=== PATIENT | male | born 1965 | race Caucasian/White ===

== ENCOUNTER 2017-02-11 15:51 | Emergency (ER) | payer OTHER ==
--- NOTE | 2017-02-11 17:00 | EDPHY ---
H & P Time Seen by Provider: 02/11/17 16:02 HPI/ROS: At 10:00 p.m. last night while at work going down stairs this patient inverted his left ankle with immediate mild pain initially. He has a low bear some weight still last night but by this morning he reports 5/10 pain at rest that becomes severe with attempts to bear weight. He notes associated mild circumferential swelling of the ankle comes in to rule out fracture. He works for [employer]. ROS: No constitutional symptoms Integumentary: No redness to the ankle or ecchymosis. Musculoskeletal: No other injuries he did not actually fall the way down-he caught himself. Neuro: No numbness or tingling 5 point ROS is otherwise negative Past Medical/Surgical History: Otherwise healthy While he has not oxycodone allergies tolerated hydrocodone in the past. Smoking Status: Never smoked Physical Exam: Physical Exam Vital signs are normal. General: No acute distress HEENT: Atraumatic. Eyes: Pupils equal and react to light. Extraocular motions are intact. Lungs: No respiratory distress. Cardiac: Brisk capillary refill is intact throughout. Pulses are 2+ and symmetric in the affected extremity. Skin: No rash or pallor. Extremities: Atraumatic normal except for left ankle Left ankle: Patient has mild circumferential swelling with tenderness medial equal to lateral with no 5th metatarsal tenderness no Achilles tenderness. No ecchymosis. Anterior drawer is negative for laxity Neuro: Alert and oriented x3 with no sensorimotor deficits. Initial differential diagnosis: Left ankle sprain versus fracture Constitutional: Initial Vital Signs Temperature (C) 36.4 C 02/11/17 16:04 Heart Rate 82 02/11/17 16:04 Respiratory Rate 16 02/11/17 16:04 Blood Pressure 120/89 H 02/11/17 16:04 O2 Sat (%) 92 02/11/17 16:04 O2 Delivery Mode Room Air Allergies/Adverse Reactions: oxycodone Allergy (Verified 02/11/17 16:02) Home Medications: Medication Instructions Recorded Ibuprofen [Motrin (*)] 600 mg PO Q6 PRN #30 tab 02/11/17 Vit A Acet/Vit C/Zinc/Propolis 02/11/17 traMADol [Ultram 50 mg (*)] 50 - 100 mg PO Q4 PRN #12 tab 02/11/17 MDM/Departure - MDM Diagnostics: Ankle x-ray: Rounded calcification inferior to the medial malleolus likely from remote trauma. Soft tissue swelling. Otherwise negative. Imaging Results: Imaging Impressions Ankle X-Ray 02/11/17 16:08 Impression: Different definite acute fracture. Imaging: Discussed imaging studies w/ call center associate Radiologist, I viewed and interpreted images myself Medications Given: Discontinued Medications Tramadol HCl (Ultram) 50 mg PO EDNOW ONE Stop: 02/11/17 18:11 Last Admin: 02/11/17 18:14 Dose: 50 mg ED Course/Re-evaluation: Stirrup splint. I counseled patient regarding ankle sprain in rehab exercises - Depart Disposition: Home, Routine, Self-Care Clinical Impression: Left ankle sprain Qualifiers: Encounter type: initial encounter Involved ligament of ankle: unspecified ligament Qualified Code(s): S93.402A - Sprain of unspecified ligament of left ankle, initial encounter Condition: Good Instructions: Ankle Sprain (ED), Crutch Instructions (ED) Additional Instructions: Diagnosis: Left ankle sprain Plan: Ice 20 minutes at a time 3 times a day Elevate the ankle when able Splint until symptoms resolve Ibuprofen-600 mg per 6 hours as needed for pain Tylenol in addition if needed Crutches until it is not painful to bear weight on the ankle. When you can bear weights and walk without any significant pain, then start rehabilitation exercises. These rehab. exercises will include gentle stretches the 4 directions, "the alphabet", and manual resistance exercises in the 4 directions. Continue these exercises for the next several months revealed to rebuild your ankle strength. If your ankle is not improving with the above plan or for worsening symptoms call orthopedic M.D. for followup appointment. Stand Alone Forms: Work Excuse Prescriptions: Ibuprofen [Motrin (*)] 600 mg PO Q6 PRN #30 tab PRN Reason: Pain traMADol [Ultram 50 mg (*)] 50 - 100 mg PO Q4 PRN #12 tab PRN Reason: breakthrough pain Referrals: Doctor Abdiaziz,On Staff, [Primary Care Provider] - As per Instructions Titus Oglesby MD [Medical Doctor] - As per Instructions
[2017-02-11] MEDS ORDERED: traMADol 50 MG TAB PO ONE (18:10)
[2017-02-11 18:25] VITALS: PULSE 74; RESP 18; O2SAT 97
[2017-02-11 18:28] VITALS: BP 122/62; TEMP 98
== END 2017-02-11 18:26 | disposition home or self-care (01) ==
LOC: CED 15:51
DX: S93.402A Sprain of unspecified ligament of left ankle, initial encounter (principal); X58.XXXA Exposure to other specified factors, initial encounter; Y92.69 Other specified industrial and construction area as the place of occurrence of the external cause
CPT/HCPCS: 73610-PO; L4350